=== PATIENT | male | born 1950 | race Caucasian/White ===

== ENCOUNTER 2020-12-18 08:42 | Inpatient (IN) ==
[2020-12-18] MEDS ORDERED: NS 0.9% 1000 ml BAG 1,000 ML IV ONE (09:32)
[2020-12-18 09:52] LABS: ABS Lymphocytes 1.2 10^3/ul (1.0-4.8); ABS Monocytes 0.6 10^3/ul (0-0.8); ABS Neutrophils 5.7 10^3/ul (1.5-7.7); Eosinophil % 0.4 %; Hematocrit 46 % (42-52); Lymphocyte % 15.4 %; Mean Corpuscular HGB Conc 35 g/dL (31-36); Mean Corpuscular Hemoglobin 32 pg (27-31); Mean Corpuscular Volume 94 fL (80-94); Mean Platelet Volume 10.1 fL (7.4-10.4); Nucleated Red Blood Cells % 0.1; Platelet Count 173 10^3/uL (150-450); Red Blood Count 4.95 10^6 /uL (4.18-5.48); Red Cell Distribution Width 14 % (10-15); White Blood Count 7.5 10^3/uL (3.5-10.8)
[2020-12-18 10:21] LABS: ALT 27 U/L (7-52); AST 19 U/L (13-39); Albumin 4.7 g/dL (3.2-5.2); Albumin/Globulin Ratio 1.6 (1-3); Alkaline Phosphatase 45 U/L (35-149); Anion Gap 8 mmol/L (2-11); Blood Urea Nitrogen 13 mg/dL (6-24); CO2 Carbon Dioxide 27 mmol/L (22-32); Calcium 10.4 mg/dL (8.6-10.3); Chloride 104 mmol/L (101-111); Globulin 2.9 g/dL (2-4); Glucose 118 mg/dL (70-100); Magnesium 2.2 mg/dL (1.9-2.7); Potassium 3.7 mmol/L (3.5-5.0); Sodium 139 mmol/L (135-145); Total Protein 7.6 g/dL (6.4-8.9); Troponin I 0.05 ng/mL (<0.03)
[2020-12-18] MEDS ORDERED: ceFAZolin VIAL 1 GM in NS 0.9% 50 ML 50 ML IVPB ONE (10:52)
[2020-12-18] MEDS ORDERED: ceFAZolin 2 GM in NS PREMIX 2 GM/100 ML BAG IVPB ONE (10:52)
[2020-12-18] MEDS ORDERED: NS 0.9% 1000 ml BAG 1,000 ML IV SCH (11:00)
[2020-12-18 11:08] LABS: Rapid COVID-19 Molecular Undetected (Undetected)
[2020-12-18] MEDS ORDERED: KCL 20 MEQ/100 ML IVPREMIX 20 MEQ/100 ML BAG IV ONE (11:18)
[2020-12-18 11:32] LABS: C Reactive Protein 1.45 mg/L (<8.01)
[2020-12-18 11:34] LABS: INR 1.11 (0.86-1.15)
[2020-12-18 13:20] LABS: Troponin I 0.05 ng/mL (<0.03)
[2020-12-18 13:46] LABS: Urine Appearance Cloudy; Urine Bilirubin Negative (Negative); Urine Blood 1+ (Negative); Urine Color Yellow; Urine Glucose Negative (Negative); Urine Ketones Trace (Negative); Urine Nitrite Positive (Negative); Urine Protein Negative (Negative); Urine Specific Gravity 1.012 (1.002-1.030); Urine Urobilinogen Negative (Negative)
[2020-12-18 13:57] LABS: Urine Bacteria Absent (Absent); Urine Red Blood Cell Trace(0-2/hpf) (Absent); Urine White Blood Cell 3+(>20/hpf) (Absent); Urine Yeast Present (Absent)
[2020-12-18] MEDS ORDERED: Lidocaine 1% VIAL 10 MG/ML VIAL ONE (15:29)
[2020-12-18] MEDS ORDERED: fentaNYL 100 mcg/2 ml 50 MCG/ML VIAL ONE (15:30)
[2020-12-18] MEDS ORDERED: Midazolam 5 mg/5 ml VIAL 1 mg/ml 5 ml VIAL (5 mg) ONE (15:30)
[2020-12-18] MEDS: Enoxaparin 40 MG/0.4 ML SYR SUBCUT SCH (20:03)
[2020-12-18] MEDS: prednisoLONE 1% OPHTH.SUSP 5 ML OPHTH.SUSP BOTH EYES SCH ×2 (20:08→20:19)
[2020-12-18] MEDS: Atropine 1% OPHTH.SOL 1 DROP BTL 2-5 ML BOTH EYES SCH (20:08)
[2020-12-19] MEDS: ceFAZolin VIAL 1 GM in NS 0.9% 50 ML 50 ML IVPB SCH ×2 (00:05→07:31)
[2020-12-19 06:12] LABS: ABS Lymphocytes 1.1 10^3/ul (1.0-4.8); ABS Monocytes 0.6 10^3/ul (0-0.8); ABS Neutrophils 5.5 10^3/ul (1.5-7.7); Eosinophil % 0.3 %; Hematocrit 42 % (42-52); Hemoglobin 14.2 g/dL (14.0-18.0); Lymphocyte % 14.8 %; Mean Corpuscular HGB Conc 34 g/dL (31-36); Mean Corpuscular Hemoglobin 32 pg (27-31); Mean Corpuscular Volume 95 fL (80-94); Mean Platelet Volume 10.4 fL (7.4-10.4); Platelet Count 158 10^3/uL (150-450); Red Blood Count 4.38 10^6 /uL (4.18-5.48); Red Cell Distribution Width 14 % (10-15); White Blood Count 7.3 10^3/uL (3.5-10.8)
[2020-12-19 06:36] LABS: ALT 22 U/L (7-52); AST 19 U/L (13-39); Albumin 4.2 g/dL (3.2-5.2); Albumin/Globulin Ratio 1.7 (1-3); Alkaline Phosphatase 39 U/L (35-149); Anion Gap 8 mmol/L (2-11); Blood Urea Nitrogen 18 mg/dL (6-24); CO2 Carbon Dioxide 28 mmol/L (22-32); Calcium 9.5 mg/dL (8.6-10.3); Chloride 107 mmol/L (101-111); Globulin 2.5 g/dL (2-4); Glucose 107 mg/dL (70-100); Potassium 3.9 mmol/L (3.5-5.0); Sodium 143 mmol/L (135-145); Total Protein 6.7 g/dL (6.4-8.9)
[2020-12-19] MEDS ORDERED: Potassium Chlor 20 meq TAB.ER PO ONE (06:54)
[2020-12-19] MEDS: prednisoLONE 1% OPHTH.SUSP 5 ML OPHTH.SUSP BOTH EYES SCH ×3 (07:30→17:05)
[2020-12-19] MEDS: Atropine 1% OPHTH.SOL 1 DROP BTL 2-5 ML BOTH EYES SCH (07:30)
[2020-12-19] MEDS ORDERED: Flu vaccine *QUAD* 2021-22* 0.5 ML SYRINGE IM ONE (09:00)
[2020-12-19 09:29] LABS: Troponin I 0.05 ng/mL (<0.03)
[2020-12-19 09:39] LABS: Cholesterol 138 mg/dL; LDL Cholesterol 72 mg/dL; Triglycerides 119 mg/dL
[2020-12-19] MEDS: Enoxaparin 40 MG/0.4 ML SYR SUBCUT SCH (11:39)
[2020-12-19] MEDS ORDERED: Cefepime 1 GM in Dextrose 1 GM/50 ML BAG IV SCH (15:00)
[2020-12-19 16:35] VITALS: BP 140/75
[2020-12-20 19:38] LABS: Anaplasma phagocytophilum Negative (Negative); B. miyamotoi PCR, B Negative (Negative); Babesia divergens/MO-1 Negative (Negative); Babesia ducani Negative (Negative); Ehrlichia chaffeensis Negative (Negative); Ehrlichia ewingii/canis Negative (Negative); Ehrlichia muris eauclairensis Negative (Negative)
== END 2020-12-19 17:50 | disposition home or self-care (01) | DRG 243 ==
LOC: ED 08:42 → MEDTELE 13:00
PROVIDERS: ADMIT Internal Medicine; ATTEND Internal Medicine